=== PATIENT | male | born 1970 | race Caucasian/White ===

== ENCOUNTER 2019-07-01 19:10 | Observation (INO) | payer SELFPAY ==
[~2019-07-01] VITALS: Ht 172.7 cm; Wt 74.0 kg
[~2019-07-01 19:10] MED LIST: ABILIFY5 MG PO; ASPIRIN EC81 MG PO; CYMBALTA20 MG PO; ESIDRIX25 MG PO; LABETALOL HCL100 MG PO; LEVOTHYROXINE112 MCG PO; NIFEDIPINE ER30 M1 PO; ROBAXIN-750750 MG PO; ULTRAM50 MG PO
[2019-07-01] MEDS ORDERED: DICYCLOMINE HCL 20 MG/2 ML VIAL IM ONE (19:30)
[2019-07-01] MEDS ORDERED: ONDANSETRON HCL INJ 2MG/ML 2ML 2 MG/ML VIAL IV STA (19:30)
[2019-07-01] MEDS ORDERED: SODIUM CHLORIDE 0.9% 1000ML 1,000 ML IV STA (19:30)
[2019-07-01] MEDS ORDERED: PANTOPRAZOLE 40 MG 10ML VIAL IV STA (19:30)
[2019-07-01] MEDS ORDERED: KETOROLAC TROMETHAMINE 30 MG/ML VIAL IV STA (19:30)
[2019-07-01 19:57] LABS: BASOPHILS # (AUTO) 0.2 (0.0-0.1); EOSINOPHILS # (AUTO) 0.1 (0.0-0.4); HEMATOCRIT 43.2 % (38.2-49.6); HEMOGLOBIN 14.6 g/dL (14.0-18.0); LYMPHOCYTES # (AUTO) 3.5 (1.0-3.2); LYMPHOCYTES % 40.3 % (18.0-39.1); MEAN CORPUSCULAR HEMOGLOBIN 30.7 pg (28-32); MEAN CORPUSCULAR HGB CONC 33.8 g/dL (31-35); MEAN CORPUSCULAR VOLUME 90.8 fL (81-99); MONOCYTES # (AUTO) 0.5 (0.2-0.8); MONOCYTES % 5.2 % (4.4-11.3); NEUTROPHILS # (AUTO) 4.4 (2.1-6.9); PLATELET COUNT 259 x10e3/uL (140-360); RED BLOOD COUNT 4.76 x10e6/uL (4.3-5.7); RED CELL DISTRIBUTION WIDTH 16.5 % (11.7-14.4)
[2019-07-01 20:17] LABS: ALBUMIN 4.2 g/dL (3.5-5.0); ALBUMIN/GLOBULIN RATIO 1.3 (0.8-2.0); ANION GAP 13.6 mmol/L (8-16); CREATININE, SERUM 1.45 mg/dL (0.72-1.25); POTASSIUM 3.6 mmol/L (3.5-5.1)
[2019-07-01 20:36] LABS: THYROID STIMULATING HORMONE 78.405 uIU/mL (0.350-4.940)
[2019-07-01] MEDS ORDERED: SODIUM CHLORIDE 0.9% 50ML 50 ML ONE (20:58)
[2019-07-01] MEDS ORDERED: IOPAMIDOL 370 MG/ML 200 ML INFUS..BTL INJ ONE (20:59)
[2019-07-01 21:15] LABS: CLARITY,URINE SL CLOUDY (CLEAR); COLOR,URINE YELLOW (YELLOW)
[2019-07-01 21:16] LABS: BILIRUBIN,URINE NEGATIVE (NEGATIVE); KETONES,URINE NEGATIVE (NEGATIVE); LEUKOCYTE ESTERASE ,URINE NEGATIVE (NEGATIVE); NITRITE,URINE NEGATIVE (NEGATIVE); PROTEIN,URINE DIPSTICK NEGATIVE (NEGATIVE); URINE UROBILINOGEN 0.2 mg/dL (0.2 - 1)
[2019-07-01 21:33] LABS: EPITHELIAL CELLS,URINE RARE /LPF; RBC,URINE 0-5 /HPF (0-5)
--- NOTE | 2019-07-01 21:37 | Diagnostic Imaging Report ---
EXAM: CT Abdomen and Pelvis WITH contrast INDICATION: ^abbd pain ^[id number] ^[id number] COMPARISON: None. TECHNIQUE: Abdomen and pelvis were scanned utilizing a multidetector helical scanner from the lung base to the pubic symphysis after administration of IV contrast. Coronal and sagittal reformations were obtained. Routine protocol was performed. Scan was performed when during portal venous phase. IV CONTRAST: 100 mL of Isovue 370 ORAL CONTRAST: Water COMPLICATIONS: None RADIATION DOSE: Total DLP: 672 mGy*cm Estimated effective dose: (DLP x 0.015 x size factor) mSv CTDIvol has been reviewed. It is below the limits set by the Radiation Protocol Committee (RPC). Dose modulation, iterative reconstruction, and/or weight based adjustment of the mA/kV was utilized to reduce the radiation dose to as low as reasonably achievable. FINDINGS: LINES and TUBES: None. LOWER THORAX: Unremarkable HEPATOBILIARY: Hyperemia near the gallbladder fossa. No focal hepatic lesions. No biliary ductal dilation. GALLBLADDER: Multiple gallstones. Circumferential gallbladder wall thickening. The gallbladder wall measures up to 1.4 cm in maximum thickness. SPLEEN: No splenomegaly. PANCREAS: No focal masses or ductal dilatation. ADRENALS: No adrenal nodules KIDNEYS/URETERS: Kidneys enhance symmetrically. No hydronephrosis. No cystic or solid mass lesions. No stones. GI TRACT: Apparent circumferential wall thickening of the right colon. Diffuse colonic diverticulosis. No mesenteric inflammation. No evidence of bowel obstruction. Normal appendix. PELVIC ORGANS/BLADDER: Unremarkable. LYMPH NODES: No lymphadenopathy. VESSELS: Scattered atherosclerotic calcifications. PERITONEUM / RETROPERITONEUM: No free air or fluid. BONES: Unremarkable. SOFT TISSUES: Unremarkable. IMPRESSION: 1. Cholelithiasis with gallbladder wall thickening and gallbladder fossa hyperemia suggestive of acute cholecystitis. 2. Apparent wall thickening of the right colon. Differential considerations include peristalsis and nonspecific colitis. Colonic diverticulosis without evidence of acute diverticulitis. Signed by: Timmy Branham MD on 07/01/2019 9:33 PM
[2019-07-01] MEDS ORDERED: ONDANSETRON HCL INJ 2MG/ML 2ML 2 MG/ML VIAL IV PRN (21:45)
[2019-07-01] MEDS ORDERED: MORPHINE SULFATE INJ 4 MG/ML INJ 1ML IV PRN (21:45)
[2019-07-01] MEDS ORDERED: METHOCARBAMOL 750 MG TAB PO PRN (23:30)
[2019-07-01] MEDS ORDERED: TRAMADOL HCL 50 MG TAB PO PRN (23:30)
[2019-07-01] MEDS: SODIUM CHLORIDE 0.9% 1000ML 1,000 ML IV SCH (23:46)
[2019-07-01] MEDS: PIPER-TAZ 3.375 GM 50 ML IV SCH (23:46)
[2019-07-02] VITALS (7 sets, daily range): BP systolic 114–139; BP diastolic 87–97
--- NOTE | 2019-07-02 00:08 | NUR ---
48 YR OLD MALE ADMITTED INTO 287 WITH DX OF ABD. PAIN AND CHLECYSTITIS.CAT SCAN DONE. US DONE.PIV LEFT AC NS INFUSING AT 125 ML/HR.PT IS ALERT AND ORIENTED X3. NKDA. VOIDING PER URINAL. PT REMAINS NPO PENDING PROCEDURE. COVID CULURE DONE.RESTING ON SIDE IN BED - FELL ASLEEP DURING INTERVIEW. RESPIRATIONS ARE EVEN AND UNLABORED. PT DENIES PAIN. CALL LIGHT WITHIN REACH. BED IN LOW POSITION.
--- NOTE | 2019-07-02 00:20 | Diagnostic Imaging Report ---
EXAM: Gallbladder Ultrasound INDICATION: ^RUQ PAIN COMPARISON: None. TECHNIQUE: Transverse and longitudinal images of the gallbladder were obtained. FINDINGS: Liver: 50.1 cm in length, normal echogenicity Gallbladder: Stones/Sludge: Multiple mobile shadowing stones Wall: 0.4 cm, thickened Appearance: No wall thickening, pericholecystic fluid or hydrops. Sonographic Fierro's Sign: Negative Bile Ducts: Intrahepatic Ducts: No dilatation Extrahepatic Ducts: Common bile duct measures 0.2 cm, no dilatation Free Fluid: No ascites or pleural effusion IMPRESSION: Cholelithiasis with gallbladder wall thickening. No pericholecystic fluid or hydrops is identified. Findings are sonographically equivocal for acute cholecystitis. Recommend clinical correlation. Signed by: Timmy Branham MD on 07/02/2019 12:17 AM
[2019-07-02] MEDS ORDERED: LEVOTHYROXINE SODIUM 100 MCG TAB PO SCH (06:00)
[2019-07-02 06:48] LABS: BASOPHILS # (AUTO) 0.2 (0.0-0.1); BASOPHILS % 2.3 % (0.0-1.0); EOSINOPHILS # (AUTO) 0.2 (0.0-0.4); EOSINOPHILS % 2.1 % (0.0-6.0); HEMATOCRIT 42.2 % (38.2-49.6); HEMOGLOBIN 13.8 g/dL (14.0-18.0); LYMPHOCYTES # (AUTO) 3.4 (1.0-3.2); LYMPHOCYTES % 41.2 % (18.0-39.1); MEAN CORPUSCULAR HEMOGLOBIN 29.8 pg (28-32); MEAN CORPUSCULAR HGB CONC 32.7 g/dL (31-35); MEAN CORPUSCULAR VOLUME 91.1 fL (81-99); MONOCYTES # (AUTO) 0.5 (0.2-0.8); MONOCYTES % 6.3 % (4.4-11.3); NEUTROPHILS % 47.6 % (38.7-80.0); PLATELET COUNT 233 x10e3/uL (140-360); RED BLOOD COUNT 4.63 x10e6/uL (4.3-5.7); RED CELL DISTRIBUTION WIDTH 16.4 % (11.7-14.4)
--- NOTE | 2019-07-02 06:54 | NUR ---
Received bedside shift report from off going nurse. Patient is in stable condition. No s/s of distress noted. Call light within reach. Bed in the lowest position.
[2019-07-02] MEDS: SODIUM CHLORIDE 0.9% 1000ML 1,000 ML IV SCH (07:01)
[2019-07-02] MEDS: PIPER-TAZ 3.375 GM 50 ML IV SCH ×3 (07:01→17:16)
[2019-07-02 07:10] LABS: ANION GAP 10.3 mmol/L (8-16); BLOOD UREA NITROGEN 10 mg/dL (7-26); BUN/CREATININE RATIO 8 (6-25); CALCIUM 7.9 mg/dL (8.4-10.2); CARBON DIOXIDE 24 mmol/L (22-29); CHLORIDE 107 mmol/L (98-107); CHOL/HDL RATIO 11.3 (3.9-4.7); CHOLESTEROL 272 MD/DL (0-199); EST GLOMERULAR FILTRATION RATE > 60 ML/MIN (60-); GLUCOSE 77 mg/dL (74-118); HDL CHOLESTEROL 24 MG/DL (40-60); LDL CHOLESTEROL 219 MG/DL (60-130); MAGNESIUM 1.9 MG/DL (1.3-2.1); PHOSPHORUS 2.5 MG/DL (2.3-4.7); POTASSIUM 3.3 mmol/L (3.5-5.1); SODIUM 138 mmol/L (136-145); TRIGLYCERIDES 143 MG/DL (0-149)
[2019-07-02 07:11] LABS: LIPASE < 4 U/L (8-78)
[2019-07-02] MEDS ORDERED: AUGMENTIN 875-1 EACH PO (08:13)
[2019-07-02] MEDS ORDERED: NIFEDIPINE CR 30 MG TAB PO SCH (09:00)
[2019-07-02] MEDS ORDERED: DULOXETINE HCL 20 MG DELAYED RELEASE PO SCH (09:00)
[2019-07-02] MEDS ORDERED: NON-FORMULARY MEDICATION (Aripiprazole (Abilify) 5 MG) PO SCH (09:00)
[2019-07-02] MEDS ORDERED: ASPIRIN 81 MG ENTERIC COATED PO SCH (09:00)
[2019-07-02] MEDS ORDERED: ARIPIPRAZOLE 5 MG TABLET PO SCH (09:00)
[2019-07-02] MEDS ORDERED: HYDROCHLOROTHIAZIDE 25 MG TAB PO SCH (09:00)
[2019-07-02] MEDS ORDERED: LABETALOL HCL 100 MG TAB PO SCH (09:00)
[2019-07-02] MEDS ORDERED: POTASSIUM CHLORIDE 20 MEQ TAB CR PO NR (12:37)
[2019-07-02] MEDS ORDERED: SODIUM CHLORIDE 0.9% 500ML 500 ML IV ONE (13:30)
[2019-07-02] MEDS ORDERED: PANTOPRAZOLE 40 MG 10ML VIAL IV NR (14:00)
[2019-07-02] MEDS ORDERED: LEVOTHYROXINE SODIUM 100 MCG/VIAL IV NR (14:00)
[2019-07-02] MEDS ORDERED: SYNTHROID100 MCG PO (16:52)
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
--- NOTE | 2019-07-02 18:38 | NUR ---
Received discharge order from MIKAELA Vazquez. Patient is in stable condition. IV line to left antecubital discontinued with tip intact, pressure applied to site, no bleeding noted. Discharge teaching provided to patient, he verbalized understanding. Discharge paperwork with prescription and all personal items on hand. Patient accompanied to private auto via wheelchair by staff.
--- NOTE | 2019-07-02 18:45 | History and Physical ---
ADDENDUM: I would like to remain the note as an H and P, short-term stay and discharge summary. The case was discussed extensively with Dr. Aquino. Originally, there was consideration for getting a 2nd opinion by Dr. Dietrich of surgery. However, Dr. Aquino had spoken with Dr. Francois Waite, and this is really unnecessary as the patient's cholecystectomy can be done on an outpatient basis it is not acute. He is currently able to tolerate a clear liquid diet. He presently denies any pain. His T-max was 99.4. WBC today 8.6. He is making urine now. He received 500 mL bolus of normal saline and has continued to receive normal saline at 125 mL an hour. Today, we will discharge the patient home on clear liquid diet. Activity level as tolerated. Follow up with his PCP, Dr. Navarrete in 1-2 weeks. Admitting and discharge diagnoses are the same. [place] [id number]. Dictated by George Murillo NP Santos Aquino MD HWP/MODL /[id number]
[2019-07-03] MEDS ORDERED: PANTOPRAZOLE 40 MG 10ML VIAL IV SCH (09:00)
== END 2019-07-02 18:38 | disposition home or self-care (01) ==
LOC: ER 19:10 → ERHOLD 22:19 → MED/SURG3 07-02 00:56
PROVIDERS: ADMIT Internal Medicine; ATTEND Internal Medicine
DX: K80.00 Calculus of gallbladder with acute cholecystitis without obstruction (principal); Z11.59 Encounter for screening for other viral diseases; F17.200 Nicotine dependence, unspecified, uncomplicated; F31.9 Bipolar disorder, unspecified; E03.9 Hypothyroidism, unspecified; N17.9 Acute kidney failure, unspecified; E86.0 Dehydration
CPT/HCPCS: 36415; 74177; 76705; 80048; 80053; 80061; 81001; 82150; 83690; 83735; 84100; 84443; 85025; 87086; 87635; 99284; G0378; J0500; J1885; J2405; J2543; J7030; J7040; Q9967

== ENCOUNTER → 2020-01-10 | Emergency (ER) | payer SELFPAY ==
[~2020-01-10] MED LIST changes: +AUGMENTIN 875-1 EACH PO; +SYNTHROID100 MCG PO
== END | disposition left against medical advice (07) ==
LOC: ER 22:55
DX: S09.93XA Unspecified injury of face, initial encounter (principal)

== ENCOUNTER 2020-07-10 17:57 | Inpatient (IN) | payer SELFPAY ==
[~2020-07-10] VITALS: Ht 170.2 cm; Wt 77.1 kg
[2020-07-10 18:49] LABS: BASOPHILS # (AUTO) 0.2 (0.0-0.1); BASOPHILS % 1.6 % (0.0-1.0); EOSINOPHILS # (AUTO) 0.4 (0.0-0.4); EOSINOPHILS % 3.6 % (0.0-6.0); HEMATOCRIT 42.9 % (38.2-49.6); HEMOGLOBIN 14.3 g/dL (14.0-18.0); LYMPHOCYTES # (AUTO) 3.6 (1.0-3.2); LYMPHOCYTES % 35.2 % (18.0-39.1); MEAN CORPUSCULAR HEMOGLOBIN 29.8 pg (28-32); MEAN CORPUSCULAR HGB CONC 33.3 g/dL (31-35); MEAN CORPUSCULAR VOLUME 89.4 fL (81-99); MONOCYTES # (AUTO) 0.5 (0.2-0.8); MONOCYTES % 5.1 % (4.4-11.3); NEUTROPHILS # (AUTO) 5.4 (2.1-6.9); NEUTROPHILS % 53.2 % (38.7-80.0); PLATELET COUNT 246 x10e3/uL (140-360); RED CELL DISTRIBUTION WIDTH 16.4 % (11.7-14.4)
[2020-07-10 19:10] LABS: ALANINE AMINOTRANSFERASE 59 IU/L (0-55); ALBUMIN 3.9 g/dL (3.5-5.0); ALBUMIN/GLOBULIN RATIO 1.1 (0.8-2.0); ALKALINE PHOSPHATASE 59 IU/L (40-150); BLOOD UREA NITROGEN 19 mg/dL (7-26); BUN/CREATININE RATIO 15 (6-25); CALCIUM 8.8 mg/dL (8.4-10.2); CARBON DIOXIDE 22 mmol/L (22-29); CHLORIDE 103 mmol/L (98-107); CREATINE KINASE 4088 IU/L (30-200); CREATININE, SERUM 1.26 mg/dL (0.72-1.25); EST GLOMERULAR FILTRATION RATE > 60 ML/MIN (60-); GLUCOSE 95 mg/dL (74-118); SODIUM 138 mmol/L (136-145)
[2020-07-10 19:35] LABS: AMYLASE 50 U/L (25-125); LIPASE 17 U/L (8-78)
[2020-07-10 19:50] LABS: COLOR,URINE YELLOW (YELLOW)
[2020-07-10 19:51] LABS: CLARITY,URINE CLEAR (CLEAR); KETONES,URINE NEGATIVE (NEGATIVE); LEUKOCYTE ESTERASE ,URINE NEGATIVE (NEGATIVE); NITRITE,URINE NEGATIVE (NEGATIVE); PROTEIN,URINE DIPSTICK NEGATIVE (NEGATIVE); URINE UROBILINOGEN 0.2 mg/dL (0.2 - 1)
[2020-07-10] MEDS ORDERED: SODIUM CHLORIDE 0.9% 50ML 50 ML ONE (20:02)
[2020-07-10] MEDS ORDERED: IOPAMIDOL 370 MG/ML 200 ML INFUS..BTL INJ ONE (20:02)
[2020-07-10 20:19] LABS: RBC,URINE 0-5 /HPF (0-5); WBC,URINE (MAN) 0-5 /HPF (0-5)
[2020-07-10] MEDS ORDERED: ONDANSETRON HCL INJ 2MG/ML 2ML 2 MG/ML VIAL IV PRN (21:15)
[2020-07-10] MEDS ORDERED: SODIUM CHLORIDE 0.9% 1000ML 1,000 ML IV ONE (21:15)
[2020-07-10 21:18] LABS: AMPHETAMINES SCREEN,URINE NEGATIVE (NEGATIVE); BENZODIAZEPINES SCREEN,URINE NEGATIVE (NEGATIVE); PHENCYCLIDINE SCREEN,URINE NEGATIVE (NEGATIVE)
[2020-07-10] MEDS ORDERED: SODIUM CHLORIDE 0.9% 1000ML 2,000 ML ONE (21:23)
[2020-07-10] MEDS ORDERED: DEXTROSE 50% SYRINGE 50 ML IV PRN (21:30)
[2020-07-10] MEDS: SODIUM CHLORIDE 0.9% 1000ML 1,000 ML IV SCH (22:21)
[2020-07-10 23:35] VITALS: BP 145/100
[2020-07-10 23:37] VITALS: BP 145/100
[2020-07-11] MEDS: SODIUM CHLORIDE 0.9% 1000ML 1,000 ML IV SCH ×4 (03:11→20:07)
[2020-07-11 03:34] LABS: CREATINE KINASE MB 23.9 ng/mL (0-5.0)
[2020-07-11 04:00] VITALS: BP 129/96
[2020-07-11 05:19] LABS: BASOPHILS # (AUTO) 0.2 (0.0-0.1); BASOPHILS % 1.9 % (0.0-1.0); EOSINOPHILS # (AUTO) 0.2 (0.0-0.4); EOSINOPHILS % 3.1 % (0.0-6.0); HEMATOCRIT 39.8 % (38.2-49.6); HEMOGLOBIN 13.1 g/dL (14.0-18.0); LYMPHOCYTES # (AUTO) 2.7 (1.0-3.2); LYMPHOCYTES % 34.8 % (18.0-39.1); MEAN CORPUSCULAR HEMOGLOBIN 29.2 pg (28-32); MEAN CORPUSCULAR HGB CONC 32.9 g/dL (31-35); MEAN CORPUSCULAR VOLUME 88.8 fL (81-99); MONOCYTES # (AUTO) 0.4 (0.2-0.8); MONOCYTES % 5.1 % (4.4-11.3); NEUTROPHILS # (AUTO) 4.2 (2.1-6.9); NEUTROPHILS % 54.1 % (38.7-80.0); PLATELET COUNT 212 x10e3/uL (140-360); RED BLOOD COUNT 4.48 x10e6/uL (4.3-5.7); RED CELL DISTRIBUTION WIDTH 16.4 % (11.7-14.4)
[2020-07-11 05:37] LABS: ALANINE AMINOTRANSFERASE 56 IU/L (0-55); ALBUMIN 3.7 g/dL (3.5-5.0); ALBUMIN/GLOBULIN RATIO 1.2 (0.8-2.0); ALKALINE PHOSPHATASE 59 IU/L (40-150); ANION GAP 14.8 mmol/L (8-16); BLOOD UREA NITROGEN 16 mg/dL (7-26); BUN/CREATININE RATIO 14 (6-25); CALCIUM 8.2 mg/dL (8.4-10.2); CARBON DIOXIDE 22 mmol/L (22-29); CHLORIDE 106 mmol/L (98-107); CREATININE, SERUM 1.12 mg/dL (0.72-1.25); EST GLOMERULAR FILTRATION RATE > 60 ML/MIN (60-); GLUCOSE 89 mg/dL (74-118); POTASSIUM 3.8 mmol/L (3.5-5.1); SODIUM 139 mmol/L (136-145)
[2020-07-11] MEDS: INSULIN REGULAR, HUMAN 100 UNIT/1 ML 3ML VIAL SQ SCH ×4 (07:30→17:18)
[2020-07-11] MEDS ORDERED: LITIUM (08:10)
[2020-07-11 08:18] VITALS: BP 132/108
[2020-07-11 08:59] VITALS: BP 132/100
[2020-07-11] MEDS ORDERED: LACTULOSE SYRUP 20 GM/30 ML UDC PO PRN (12:00)
[2020-07-11 14:14] LABS: CREATINE KINASE MB 28.1 ng/mL (0-5.0)
[2020-07-11 18:20] VITALS: BP 152/110
[2020-07-11 20:00] VITALS: BP 128/94
[2020-07-11] MEDS: METHOCARBAMOL 750 MG TAB PO PRN ×2 (21:41→21:44)
[2020-07-12] VITALS (9 sets, daily range): BP systolic 122–145; BP diastolic 82–101
[2020-07-12] MEDS: SODIUM CHLORIDE 0.9% 1000ML 1,000 ML IV SCH ×3 (04:03→19:59)
[2020-07-12] MEDS: LEVOTHYROXINE SODIUM 75 MCG TAB PO SCH (06:43)
[2020-07-12] MEDS: INSULIN REGULAR, HUMAN 100 UNIT/1 ML 3ML VIAL SQ SCH ×4 (07:30→21:00)
[2020-07-12] MEDS ORDERED: LEVOTHYROXINE SODIUM 112 MCG TAB PO SCH (09:30)
[2020-07-12 11:00] LABS: CREATINE KINASE MB 31.9 ng/mL (0-5.0)
[2020-07-12] MEDS: DULOXETINE HCL 20 MG DELAYED RELEASE PO SCH (13:38)
[2020-07-12] MEDS ORDERED: ONDANSETRON HCL 4 MG ORAL DISINTEGRATING TAB PO PRN (14:15)
[2020-07-12 15:08] LABS: FREE T4 (FREE THYROXINE) < 0.40 ng/dL (0.8-1.8)
[2020-07-12 15:49] LABS: THYROID STIMULATING HORMONE 139.905 uIU/mL (0.350-4.940)
[2020-07-12] MEDS: METHOCARBAMOL 750 MG TAB PO PRN (21:15)
[2020-07-13] VITALS (7 sets, daily range): BP systolic 106–126; BP diastolic 81–95
[2020-07-13] MEDS: SODIUM CHLORIDE 0.9% 1000ML 1,000 ML IV SCH ×4 (04:26→22:47)
[2020-07-13] MEDS: METHOCARBAMOL 750 MG TAB PO PRN ×3 (04:55→23:33)
[2020-07-13 05:14] LABS: BASOPHILS # (AUTO) 0.1 (0.0-0.1); BASOPHILS % 1.8 % (0.0-1.0); EOSINOPHILS # (AUTO) 0.3 (0.0-0.4); EOSINOPHILS % 3.9 % (0.0-6.0); HEMATOCRIT 41.1 % (38.2-49.6); HEMOGLOBIN 13.5 g/dL (14.0-18.0); LYMPHOCYTES # (AUTO) 2.5 (1.0-3.2); LYMPHOCYTES % 32.3 % (18.0-39.1); MEAN CORPUSCULAR HEMOGLOBIN 29.5 pg (28-32); MEAN CORPUSCULAR HGB CONC 32.8 g/dL (31-35); MEAN CORPUSCULAR VOLUME 89.9 fL (81-99); MONOCYTES # (AUTO) 0.4 (0.2-0.8); MONOCYTES % 5.3 % (4.4-11.3); NEUTROPHILS # (AUTO) 4.3 (2.1-6.9); NEUTROPHILS % 55.9 % (38.7-80.0); PLATELET COUNT 212 x10e3/uL (140-360); RED BLOOD COUNT 4.57 x10e6/uL (4.3-5.7); RED CELL DISTRIBUTION WIDTH 16.4 % (11.7-14.4)
[2020-07-13 05:30] LABS: ALANINE AMINOTRANSFERASE 67 IU/L (0-55); ALBUMIN 3.9 g/dL (3.5-5.0); ALBUMIN/GLOBULIN RATIO 1.2 (0.8-2.0); ALKALINE PHOSPHATASE 58 IU/L (40-150); ANION GAP 12.8 mmol/L (8-16); BLOOD UREA NITROGEN 14 mg/dL (7-26); BUN/CREATININE RATIO 13 (6-25); CALCIUM 8.3 mg/dL (8.4-10.2); CARBON DIOXIDE 21 mmol/L (22-29); CHLORIDE 105 mmol/L (98-107); CREATININE, SERUM 1.12 mg/dL (0.72-1.25); EST GLOMERULAR FILTRATION RATE > 60 ML/MIN (60-); GLUCOSE 87 mg/dL (74-118); POTASSIUM 3.8 mmol/L (3.5-5.1); SODIUM 135 mmol/L (136-145)
[2020-07-13] MEDS ORDERED: LEVOTHYROXINE SODIUM 75 MCG TAB PO SCH (06:00)
[2020-07-13] MEDS: LEVOTHYROXINE SODIUM 75 MCG TAB PO SCH (06:30)
[2020-07-13] MEDS: INSULIN REGULAR, HUMAN 100 UNIT/1 ML 3ML VIAL SQ SCH ×4 (07:30→20:01)
[2020-07-13] MEDS: DULOXETINE HCL 20 MG DELAYED RELEASE PO SCH (08:50)
[2020-07-13] MEDS ORDERED: ACETAMINOPHEN 325 MG TAB PO PRN (20:30)
[2020-07-14] VITALS (8 sets, daily range): BP systolic 107–141; BP diastolic 85–109
[2020-07-14] MEDS: SODIUM CHLORIDE 0.9% 1000ML 1,000 ML IV SCH ×3 (03:11→21:59)
[2020-07-14] MEDS: LEVOTHYROXINE SODIUM 75 MCG TAB PO SCH (05:43)
[2020-07-14 06:36] LABS: BASOPHILS # (AUTO) 0.1 (0.0-0.1); BASOPHILS % 1.7 % (0.0-1.0); EOSINOPHILS # (AUTO) 0.3 (0.0-0.4); EOSINOPHILS % 3.9 % (0.0-6.0); HEMATOCRIT 39.6 % (38.2-49.6); HEMOGLOBIN 13.3 g/dL (14.0-18.0); LYMPHOCYTES # (AUTO) 2.4 (1.0-3.2); LYMPHOCYTES % 35.1 % (18.0-39.1); MEAN CORPUSCULAR HEMOGLOBIN 29.5 pg (28-32); MEAN CORPUSCULAR HGB CONC 33.6 g/dL (31-35); MEAN CORPUSCULAR VOLUME 87.8 fL (81-99); MONOCYTES # (AUTO) 0.3 (0.2-0.8); MONOCYTES % 4.6 % (4.4-11.3); NEUTROPHILS # (AUTO) 3.7 (2.1-6.9); PLATELET COUNT 210 x10e3/uL (140-360); RED BLOOD COUNT 4.51 x10e6/uL (4.3-5.7); RED CELL DISTRIBUTION WIDTH 15.9 % (11.7-14.4)
[2020-07-14 07:00] LABS: ALANINE AMINOTRANSFERASE 70 IU/L (0-55); ALBUMIN 3.8 g/dL (3.5-5.0); ALBUMIN/GLOBULIN RATIO 1.3 (0.8-2.0); ALKALINE PHOSPHATASE 59 IU/L (40-150); ANION GAP 13.7 mmol/L (8-16); BLOOD UREA NITROGEN 12 mg/dL (7-26); BUN/CREATININE RATIO 11 (6-25); CALCIUM 8.1 mg/dL (8.4-10.2); CARBON DIOXIDE 21 mmol/L (22-29); CHLORIDE 106 mmol/L (98-107); CREATININE, SERUM 1.11 mg/dL (0.72-1.25); EST GLOMERULAR FILTRATION RATE > 60 ML/MIN (60-); GLUCOSE 82 mg/dL (74-118); POTASSIUM 3.7 mmol/L (3.5-5.1); SODIUM 137 mmol/L (136-145)
[2020-07-14] MEDS: INSULIN REGULAR, HUMAN 100 UNIT/1 ML 3ML VIAL SQ SCH ×4 (07:24→21:00)
[2020-07-14] MEDS: DULOXETINE HCL 20 MG DELAYED RELEASE PO SCH (09:11)
[2020-07-14] MEDS: QUETIAPINE FUMARATE 25 MG TAB PO SCH ×2 (14:51→17:01)
[2020-07-14] MEDS: CLONAZEPAM 0.5 MG TAB PO PRN (21:59)
[2020-07-15] VITALS (9 sets, daily range): BP systolic 109–139; BP diastolic 85–98
[2020-07-15] MEDS: METHOCARBAMOL 750 MG TAB PO PRN (01:34)
[2020-07-15] MEDS: SODIUM CHLORIDE 0.9% 1000ML 1,000 ML IV SCH ×3 (04:04→17:24)
[2020-07-15] MEDS: LEVOTHYROXINE SODIUM 75 MCG TAB PO SCH (06:02)
[2020-07-15 06:51] LABS: BASOPHILS # (AUTO) 0.1 (0.0-0.1); EOSINOPHILS # (AUTO) 0.3 (0.0-0.4); HEMATOCRIT 39.1 % (38.2-49.6); HEMOGLOBIN 13.1 g/dL (14.0-18.0); LYMPHOCYTES # (AUTO) 2.5 (1.0-3.2); LYMPHOCYTES % 38.3 % (18.0-39.1); MEAN CORPUSCULAR HEMOGLOBIN 29.9 pg (28-32); MEAN CORPUSCULAR HGB CONC 33.5 g/dL (31-35); MEAN CORPUSCULAR VOLUME 89.3 fL (81-99); MONOCYTES # (AUTO) 0.3 (0.2-0.8); MONOCYTES % 5.3 % (4.4-11.3); NEUTROPHILS # (AUTO) 3.2 (2.1-6.9); NEUTROPHILS % 49.8 % (38.7-80.0); PLATELET COUNT 212 x10e3/uL (140-360); RED BLOOD COUNT 4.38 x10e6/uL (4.3-5.7); RED CELL DISTRIBUTION WIDTH 16.2 % (11.7-14.4)
[2020-07-15] MEDS: INSULIN REGULAR, HUMAN 100 UNIT/1 ML 3ML VIAL SQ SCH ×4 (07:30→21:00)
[2020-07-15 07:55] LABS: ANION GAP 12.7 mmol/L (8-16); BLOOD UREA NITROGEN 12 mg/dL (7-26); BUN/CREATININE RATIO 11 (6-25); CALCIUM 8.4 mg/dL (8.4-10.2); CARBON DIOXIDE 20 mmol/L (22-29); CHLORIDE 108 mmol/L (98-107); CREATININE, SERUM 1.11 mg/dL (0.72-1.25); EST GLOMERULAR FILTRATION RATE > 60 ML/MIN (60-); GLUCOSE 83 mg/dL (74-118); POTASSIUM 3.7 mmol/L (3.5-5.1); SODIUM 137 mmol/L (136-145)
[2020-07-15 07:56] LABS: CREATINE KINASE 8834 IU/L (30-200)
[2020-07-15] MEDS: QUETIAPINE FUMARATE 25 MG TAB PO SCH ×2 (08:29→16:49)
[2020-07-15] MEDS: DULOXETINE HCL 20 MG DELAYED RELEASE PO SCH (08:29)
[2020-07-15] MEDS: CLONAZEPAM 0.5 MG TAB PO PRN (23:01)
[2020-07-16] VITALS: BP 134/100
[2020-07-16] MEDS: SODIUM CHLORIDE 0.9% 1000ML 1,000 ML IV SCH ×3 (00:04→13:24)
[2020-07-16 04:00] VITALS: BP 134/92
[2020-07-16] MEDS: LEVOTHYROXINE SODIUM 75 MCG TAB PO SCH (05:46)
[2020-07-16 05:54] LABS: BASOPHILS # (AUTO) 0.2 (0.0-0.1); BASOPHILS % 2.3 % (0.0-1.0); EOSINOPHILS # (AUTO) 0.3 (0.0-0.4); HEMATOCRIT 43.2 % (38.2-49.6); HEMOGLOBIN 14.4 g/dL (14.0-18.0); LYMPHOCYTES # (AUTO) 3.1 (1.0-3.2); LYMPHOCYTES % 37.7 % (18.0-39.1); MEAN CORPUSCULAR HEMOGLOBIN 29.8 pg (28-32); MEAN CORPUSCULAR HGB CONC 33.3 g/dL (31-35); MEAN CORPUSCULAR VOLUME 89.3 fL (81-99); MONOCYTES # (AUTO) 0.4 (0.2-0.8); MONOCYTES % 5.3 % (4.4-11.3); NEUTROPHILS # (AUTO) 4.2 (2.1-6.9); NEUTROPHILS % 50.2 % (38.7-80.0); PLATELET COUNT 242 x10e3/uL (140-360); RED BLOOD COUNT 4.84 x10e6/uL (4.3-5.7); RED CELL DISTRIBUTION WIDTH 16.4 % (11.7-14.4)
[2020-07-16 06:24] LABS: ALANINE AMINOTRANSFERASE 73 IU/L (0-55); ALBUMIN 4.3 g/dL (3.5-5.0); ALBUMIN/GLOBULIN RATIO 1.2 (0.8-2.0); ALKALINE PHOSPHATASE 66 IU/L (40-150); ANION GAP 14.7 mmol/L (8-16); BLOOD UREA NITROGEN 13 mg/dL (7-26); BUN/CREATININE RATIO 11 (6-25); CALCIUM 8.7 mg/dL (8.4-10.2); CARBON DIOXIDE 23 mmol/L (22-29); CHLORIDE 104 mmol/L (98-107); CREATININE, SERUM 1.21 mg/dL (0.72-1.25); EST GLOMERULAR FILTRATION RATE > 60 ML/MIN (60-); GLUCOSE 91 mg/dL (74-118); POTASSIUM 3.7 mmol/L (3.5-5.1); SODIUM 138 mmol/L (136-145)
[2020-07-16] MEDS: METHOCARBAMOL 750 MG TAB PO PRN ×2 (06:39→14:26)
[2020-07-16] MEDS: INSULIN REGULAR, HUMAN 100 UNIT/1 ML 3ML VIAL SQ SCH ×3 (07:30→16:30)
[2020-07-16 08:04] VITALS: BP 142/94
[2020-07-16] MEDS: DULOXETINE HCL 20 MG DELAYED RELEASE PO SCH (09:00)
[2020-07-16] MEDS: QUETIAPINE FUMARATE 25 MG TAB PO SCH (09:00)
[2020-07-16 10:52] VITALS: BP 142/94
[2020-07-16 11:11] VITALS: BP 148/107
[2020-07-16 14:58] VITALS: BP 146/75
== END 2020-07-16 17:07 | disposition home or self-care (01) | DRG 558 ==
LOC: ER 18:09 → ERHOLD 21:16 → MED/SURG 23:40
PROVIDERS: ADMIT Internal Medicine; ATTEND Internal Medicine
DX: M62.82 Rhabdomyolysis (principal); N39.0 Urinary tract infection, site not specified; E11.9 Type 2 diabetes mellitus without complications; E03.9 Hypothyroidism, unspecified; F32.9 Major depressive disorder, single episode, unspecified; Z87.891 Personal history of nicotine dependence; F41.9 Anxiety disorder, unspecified; E89.0 Postprocedural hypothyroidism; G56.21 Lesion of ulnar nerve, right upper limb; Z20.822 Contact with and (suspected) exposure to COVID-19
CPT/HCPCS: 36415; 70551; 71045; 74177; 80048; 80053; 80307; 81001; 82150; 82550; 82553; 82948; 83690; 83880; 84439; 84443; 84484; 85025; 86376; 93005; 99284; J1817; J7030; Q9967; U0002